=== PATIENT | female | born 1965 | race Caucasian/White ===

== ENCOUNTER 2018-12-30 23:27 | Emergency (ER) | payer MEDICAID ==
[~2018-12-30] VITALS: Ht 149.9 cm; Wt 50.8 kg
[2018-12-30] MEDS ORDERED: METHOCARBAMOL 750 MG TABLET (23:48)
[2018-12-30] MEDS ORDERED: BUSPIRONE HCL 10 MG TABLET (23:48)
[2018-12-30] MEDS ORDERED: NAPROXEN 500 MG TABLET (23:48)
[2018-12-30] MEDS ORDERED: METFORMIN HCL ER 500 MG TABLET PO (23:48)
[2018-12-30] MEDS ORDERED: CEPHALEXIN 500 MG CAPSULE (23:48)
--- NOTE | 2018-12-31 | NUR ---
Patient ambulated with stable gait. Speech is clear, speaks in complete sentences. No neuro deficits. A/Ox4. Patient came for sob, back and neck pain, chest congestion x 9 days.
[2018-12-31] MEDS ORDERED: predniSONE 50 MG TABLET ONE (00:29)
[2018-12-31] MEDS ORDERED: predniSONE 10 MG TABLET ONE (00:29)
[2018-12-31] MEDS ORDERED: ALBUTEROL SULFATE 2.5 MG/3 ML NEBU NEB ONE (00:30)
[2018-12-31] MEDS ORDERED: predniSONE 10 MG TABLET PO ONE (00:30)
[2018-12-31] MEDS ORDERED: IPRATROPIUM BROMIDE 0.5 MG/2.5 ML NEBU NEB ONE (00:30)
[2018-12-31 00:43] LABS: BASOPHILS # (AUTO) 0.1 K/uL (0.0-8.0); BASOPHILS % (AUTO) 0.7 % (0.0-2.0); EOSINOPHILS # (AUTO) 0.1 K/uL (0.0-0.7); EOSINOPHILS % (AUTO) 1.6 % (0.0-7.0); HEMATOCRIT 40.9 % (31.2-41.9); HEMOGLOBIN 14.2 g/dL (10.9-14.3); LYMPHOCYTES # (AUTO) 1.7 K/uL (20.0-40.0); LYMPHOCYTES % (AUTO) 23.5 % (20.5-51.5); MEAN CORPUSCULAR HEMOGLOBIN 31.4 uug (24.7-32.8); MEAN CORPUSCULAR HGB CONC 35 g/dL (32.3-35.6); MEAN CORPUSCULAR VOLUME 90.6 fL (75.5-95.3); MONOCYTES # (AUTO) 0.7 K/uL (2.0-10.0); MONOCYTES % (AUTO) 9.3 % (0.0-11.0); NEUTROPHILS # (AUTO) 4.7 K/uL (1.8-8.9); NEUTROPHILS % (AUTO) 64.9 % (38.5-71.5); PLATELET COUNT (AUTO) 140 K/uL (179-408); RED BLOOD CELL COUNT(AUTO) 4.52 MIL/uL (3.63-4.92); WHITE BLOOD COUNT (AUTO) 7.3 K/uL (3.8-11.8)
[2018-12-31] MEDS ORDERED: IPRATROPIUM BROMIDE 0.5 MG/2.5 ML NEBU ONE (00:49)
[2018-12-31] MEDS ORDERED: ALBUTEROL SULFATE 2.5 MG/3 ML NEBU ONE (00:49)
[2018-12-31 00:50] LABS: CREATININE 0.8 mg/dL (0.6-1.3); POTASSIUM 3.5 mmol/L (3.5-5.1)
[2018-12-31 01:03] LABS: BILIRUBIN,DIRECT 0.3 mg/dL (0.0-0.2); BILIRUBIN,TOTAL 0.8 mg/dL (0.2-1.0); TOTAL PROTEIN, SERUM 7.5 g/dL (6.4-8.2)
[2018-12-31 01:33] VITALS: BP 110/63
--- NOTE | 2018-12-31 01:33 | NUR ---
Patient discharged to home in stable conditon. Written and verbal after care instructions given. Patient verbalizes understanding of instructions. Patient ambulated with stable gait.
== END 2018-12-31 01:45 | disposition home or self-care (01) ==
LOC: ER 23:31
DX: J45.909 Unspecified asthma, uncomplicated (principal); R42 Dizziness and giddiness; I10 Essential (primary) hypertension; E11.9 Type 2 diabetes mellitus without complications; F17.200 Nicotine dependence, unspecified, uncomplicated; Z79.899 Other long term (current) drug therapy
CPT/HCPCS: 36415; 71045; 80048; 80076; 83880; 84484; 85025; 93005; 94644; 99285; J7512 ×2; 70030-TC; A4663; J3590